=== PATIENT | female | born 1960 | race Caucasian/White ===

== ENCOUNTER 2019-03-10 07:58 | Inpatient (IN) | payer BC ==
[2019-03-10] VITALS (7 sets, daily range): BP systolic 110–135; BP diastolic 47–91
[~2019-03-10] VITALS: Ht 170.1 cm; Wt 77.1 kg
--- NOTE | ~2019-03-10 | O ---
[place], [place] OPERATIVE NOTE NAME: BHANU DAN [facility] #: [id number] UNIT #: [id number] ROOM: 402 DOCTOR: YUMI SERVIN DPM BIRTHDATE: [birth year] DOS: 03/10/2019 SURGEON: Yumi Servin DPM ASSISTANTS: 1. Terence Claudio, fellow. 2. Bony Rodriguez, PGY3. PREOPERATIVE DIAGNOSES: 1. Pilon fracture, left ankle. 2. Painful hardware superior calcaneus. 3. Painful hardware inferior calcaneus. POSTOPERATIVE DIAGNOSES: 1. Pilon fracture, left ankle. 2. Painful hardware superior calcaneus. 3. Painful hardware inferior calcaneus. PROCEDURES: 1. Open reduction and internal fixation of the medial malleolus, lateral malleolus, anterior portion of the tibia and reduction of the malaligned ankle. 2. Syndesmosis repair. 3. Removal of hardware superior calcaneus. 4. Removal of hardware inferior calcaneus. DESCRIPTION OF PROCEDURE: The patient was seen in the preop holding area, appropriate site marking was performed. She concurred with the preoperative evaluation. At this time, she was brought in the OR and placed well-padded on OR table where anesthesia was achieved. Once the anesthesia was achieved, her left foot and leg were prepped and draped in sterile fashion. Hemostasis was accomplished via mid-thigh tourniquet inflated to 300 mmHg. Attention directed to the left lower ankle where under fluoroscopy, a manipulation was performed as best as we could to see if we could mobilize the medial malleolar fragment, which we could. At this point in time, there is no crepitus, grinding in the ankle and surprised that once we had it realigned and we thought a salvage procedure would be best for her at this point in time. PROCEDURE #1: Open reduction and internal fixation, distal pilon fracture. Attention was directed to the medial aspect of the medial malleolus where approximately 6 cm incision was made, was deepened in the same plane using sharp and blunt dissection avoiding neurovascular structures. It was carried down to the deep tissues, avoiding neurovascular structures. At this time, the fracture was identified and the fracture fragment was taken down and debrided extensively to stimulate bleeding and removing all fibrous tissue around the fracture fragment. This is reduced and held in place with temporary K-wires. There was also comminution noted anteriorly distal portion of the distal tibia where a comminution of the fracture noted there. At this point in time, this was temporarily reduced and manipulated as best possible with this and this was held together by multiple K wires. At this point in time, multiple K wires holding the medial malleolus and the anterior distal tip and the joint in a stable [place], [place] OPERATIVE NOTE NAME: BHANU DAN UNIT #: [id number] ROOM: [facility] DOCTOR: YUMI SERVIN DPM BIRTHDATE: [birth year] position. We felt like we could stabilize and hold his ankle together with a good fixation and not have to perform a fusion on her at this point in time. With this in mind, we used a large medial tibial plate from [employer], combination of nonlocking and locking screws with a lag in antiglide technique of 3.5 screws proximal that were nonlocking and then locking the distal fragment once the antiglide technique was used to compress the plate to the bone. Once this was performed, this again was locked in place with a combination of locking and nonlocking screws. Next, two 4.0 screws were placed in the medial malleolus from inferior to distal to provide more stabilization of the ankle mortise and ensuring that the medial gutter was intact. At this point in time, next an anterior, posterior screw was placed in with a washer to try to suck down the anterior fragments to maintain position. It was checked under fluoroscopy and noted to be in good anatomic length and good fixation. Given this situation, her joint was free of any step-offs or any motionless fluid. It was free of any significant step-off. At this point in time, the area was flushed with copious amounts of normal saline. Deep tissue was closed with 0 Vicryl. Skin was closed with 2-0 nylon. Next, attention to the lateral aspect of the fibula where a small stab incision was made in distal fibula. At this time, a large long plate was placed percutaneously on subfascial dissection. At this point in time, the plate was placed up the distal fibula and checked under fluoroscopy. This was fixated with a combination of 2 proximal screws lag and 2 distal screws locked. PROCEDURE #2: Reduction of the syndesmosis. With the reduction forceps, a large Marquez clamp, the tib-fib was reduced tightly and two screws were placed in from lateral to medial to reduce the syndesmosis to provide stability to the ankle once this was performed. Deep tissue was closed with 0 Vicryl. Skin was closed with 2-0 nylon. Next, attention was directed to posterior superior aspect of the calcaneus. PROCEDURE #3: Removal of painful hardware superior calcaneus. A stab incision was made over the superior aspect of the calcaneus. At this time, the dissection carried down to the bone. At this time, dissection was carried down deep and at this point in time, the K-wire was removed. Surgical wound was flushed with copious amounts of sterile saline. The skin was closed using 2-0 nylon. Next, an incision was made in the inferior calcaneus where an incision was made and deepened in the same plane, using sharp and blunt dissection, avoiding neurovascular structures, was carried down to the bone. At this time, this bone was debrided, K wire was pulled out, removed and the area was flushed with copious amounts of sterile saline. Deep tissue was closed with 2-0 nylon. The surgical wounds were dressed with Betadine-soaked Adaptic, 4 x 4s, Sofiya in a sterile compressive fashion. No local anesthetic was used as the patient had a popliteal block prior to surgery. Her wounds were dressed with Betadine-soaked Adaptic, 4 x 4s, Sofiya in a sterile compressive fashion. A Univalve BK cast was applied. She tolerated the procedure and anesthesia well, left the OR with vital signs and vascular status intact. Tourniquet was dropped at 2 hours. Good cap refill time was noted to return to all digits of the left ankle. [place], [place] OPERATIVE NOTE NAME: BHANU DAN UNIT #: [id number] ROOM: 402 DOCTOR: YUMI SERVIN DPM BIRTHDATE: [birth year] YUMI SERVIN DPM CM:OPRECORD:OPERATIVE NOTE 20 Tonio SERVIN DPM 04/14/19 1246 interface
--- NOTE | ~2019-03-10 | WRIGHTHP ---
[place], [place] PATIENT HISTORY AND PHYSICAL EXAM NAME: BHANU DAN [facility] #: [id number] UNIT #: [id number] ROOM: 402 DOCTOR: YUMI SERVIN DPM BIRTHDATE: [birth year] DOS: 03/10/2019 INDICATION NOTE. The patient sustained a distal pilon type fracture of her left ankle. She also is a known diabetic with significant bone disease in terms of osteopenia. With this in mind, she has had this fracture, she is very unclear how long she has had due to her severe neuropathy. At this time, she is set up for surgery at [facility] on 03/10/2019, set up for possible ankle fusion, possible ORIF of the ankle, possible tibiotalar calcaneal fusion and also removal of hardware posterior aspect of the calcaneus where she had 2 K wires placed in for avulsion fracture previously. With this in mind, she is aware of pros, cons, risks and benefits, overcorrection, undercorrection, recurrence, numbness, infection, nonunion, delayed union, malunion, DVT, PE, limb loss, RSD, CRPS, , etc. With this in mind, she is set up for surgery. She agrees. She understands and consents. She agreed to site marking. She agreed to consent as well as the perioperative management. She understands that long-term followup is necessary due to her disease process. YUMI SERVIN DPM CM:HISPHYS:PATIENT HISTORY AND PHYSICAL EXAMINATION 20 28 YUMI SERVIN DPM 03/10/191928 interface
--- NOTE | ~2019-03-10 | WRIGHTHP ---
[place], [place] PATIENT HISTORY AND PHYSICAL EXAM NAME: BHANU DAN [facility] #: [id number] UNIT #: [id number] ROOM: 402 DOCTOR: YUMI SERVIN DPM BIRTHDATE: [birth year] DOS: 03/10/2019 LOWER EXTREMITY PHYSICAL EXAM: VASCULAR: She has palpable pedal pulses, 2/4 DP and PT. Good cap refill time. She has had noninvasive vascular studies done demonstrating good perfusion of the left lower extremity. She has mild diffuse edema in the left lower extremity. NEUROLOGIC: She has complete loss of protective sensation secondary to diabetic peripheral neuropathy. DERMATOLOGICAL: She has no open wounds. Skin integrity is intact. Skin wrinkles are present. Minimal edema to the left lower extremity. MUSCULOSKELETAL: She has grossly unstable hindfoot and ankle. She has a varus pull to her ankle due to gastroc equinus component as well as supination adduction type of injury of the medial malleolus with a distal fibular transverse fracture and comminution like a pilon fracture in the distal articular surface of the ankle distal tibia. ORTHOPEDIC EXAM: Pilon fracture, displaced medial malleolus fracture, nondisplaced fibular fracture, syndesmosis injury and varus component of her hindfoot and ankle. YUMI SERVIN DPM CM:HISPHYS:PATIENT HISTORY AND PHYSICAL EXAMINATION 172 35 YUMI SERVIN DPM 03/10/191935 interface
[~2019-03-10 07:58] MED LIST: ADMELOG100 UNIT/1 SQ; AMLODIPINE BES2.5 MG PO; CALCIUM + D SO1 EACH PO; GABAPENTIN100 M2 PO; LISINOPRIL5 MG PO; MULTI FOR HER1 EACH PO; Synthroid,Lev150 MCG PO; VITAMIN D5000 UNI1 PO
--- NOTE | 2019-03-10 15:45 | NUR ---
Time: 1544 A 60 year old female admitted to under services of DOYLE LEIVA DO. Pt. arrived via bed from [place]. Chief complaint: SHORTNESS OF BREATH X 3 DAYS. TORIN FERRER
[2019-03-10 18:11] LABS: HEMATOCRIT 37.2 % (37.0-47.0); HEMOGLOBIN 12.2 g/dl (12.0-16.0); MEAN CELL VOLUME 96.1 fl (81.0-99.0); MEAN CORPUSCULAR HGB 31.5 pg (27.0-31.0); MEAN CORPUSCULAR HGB CONC 32.8 g/dl (33.0-37.0); MEAN PLATELET VOLUME 9.6 fl (9.6-12.3); PLATELET COUNT AUTOMATED 294 10*3/uL (130-400); RED BLOOD COUNT 3.87 10*6/uL (4.10-5.10); RED CELL DISTRI WIDTH 12.1 % (0-14.5); WHITE BLOOD COUNT 14.1 10*3/uL (4.8-10.8)
[2019-03-10 18:29] LABS: ALBUMIN 3.3 gm/dl (3.1-4.5); ALKALINE PHOSPHATASE 144 U/L (45-117); BUN 13 mg/dl (7-24); CHLORIDE 107 mmol/L (98-107); CREATININE 0.62 mg/dL (0.55-1.02); PHOSPHOROUS 2.7 mg/dL (2.5-4.9); POTASSIUM 4.5 mmol/L (3.5-5.1); SGOT/AST 11 IU/L (3-35); SGPT/ALT 11 U/L (12-78); SODIUM 138 mmol/L (136-145)
[2019-03-10 18:39] LABS: BURR CELLS FEW; PLATELET SUFFICIENCY NORMAL (NORMAL); TOTAL CELLS COUNTED 100 #CELLS
--- NOTE | 2019-03-10 19:15 | NUR ---
RESTING IN BED WITH EYES CLOSED. HEP LOCKS INTACT TO RIGHT HAND & LEFT HAND; SITE ASYMPTOMATIC. PT. HAS INSULIN PUMP THAT SHE WANTED TO RIVET THROWER. THIS RN AND OTHER RN ASSISTED PT. BLOOD SUGAR 246. WILL CONTINUE TO MONITOR.
[2019-03-10 19:21] LABS: BILIRUBIN NEGATIVE (NEGATIVE); BLOOD 1+ (NEGATIVE); CLARITY CLOUDY (CLEAR); COLOR YELLOW (YELLOW); GLUCOSE 3+ (NEGATIVE); KETONE 3+ (NEGATIVE); LEUKO ESTERASE 2+ (NEGATIVE); NITRITE POSITIVE (NEGATIVE); PH 5.5 (5.0-9.0); UROBILINOGEN 0.2 E.U./dl (0.2-1.0)
[2019-03-10 19:28] LABS: WBC TNTC wbc/hpf (0-5)
--- NOTE | 2019-03-10 20:15 | NUR ---
BLOOD SUGAR 220.
--- NOTE | 2019-03-10 21:44 | NUR ---
MEDICATED WITH TYLENOL FOR C/O GENERALIZED DISCOMFORT.
--- NOTE | 2019-03-10 23:45 | NUR ---
MEDICATED WITH ZOFRAN FOR NAUSEA/PT. ALSO HAD A SMALL EMESIS.
[2019-03-11] VITALS: BP 127/47
--- NOTE | 2019-03-11 02:00 | NUR ---
RESTING IN BED WITH EYES CLOSED. NO FURTHER C/O NAUSEA. ZOFRAN APPARENTLY EFFECTIVE. CALL LIGHT WITHIN REACH.
[2019-03-11 05:50] LABS: BASO % 0.2 % (0.0-1.0); HEMATOCRIT 31.6 % (37.0-47.0); HEMOGLOBIN 10.6 g/dl (12.0-16.0); LYMPH # 1.5 10*3/uL (1.3-4.4); LYMPH % 13.7 % (27.0-41.0); MEAN CELL VOLUME 95.2 fl (81.0-99.0); MEAN CORPUSCULAR HGB 31.9 pg (27.0-31.0); MEAN CORPUSCULAR HGB CONC 33.5 g/dl (33.0-37.0); MEAN PLATELET VOLUME 9.6 fl (9.6-12.3); MONO # 0.8 10*3/uL (0.1-1.0); MONO % 7.2 % (3.0-9.0); NEUT # 8.8 10*3/uL (2.3-7.9); NEUT % 78.7 % (47.0-73.0); PLATELET COUNT AUTOMATED 246 10*3/uL (130-400); RED BLOOD COUNT 3.32 10*6/uL (4.10-5.10); RED CELL DISTRI WIDTH 11.9 % (0-14.5); WHITE BLOOD COUNT 11.1 10*3/uL (4.8-10.8)
[2019-03-11 06:03] LABS: ACT PARTIAL THROMBO TIME 26.8 SECONDS (20.0-32.1)
[2019-03-11 06:08] LABS: ALBUMIN 2.9 gm/dl (3.1-4.5); ALKALINE PHOSPHATASE 120 U/L (45-117); BUN 13 mg/dl (7-24); CHLORIDE 110 mmol/L (98-107); CHOLESTEROL 107 mg/dL (<200); FREE T4 1.47 ng/dl (0.76-1.46); HDL CHOLESTEROL 54 mg/dl (40-60); LDL CHOLESTEROL 43 mg/dL (9-159); PHOSPHOROUS 3.4 mg/dL (2.5-4.9); POTASSIUM 3.9 mmol/L (3.5-5.1); SGOT/AST 10 IU/L (3-35); SGPT/ALT 12 U/L (12-78); SODIUM 143 mmol/L (136-145); TOTAL PROTEIN 6.1 gm/dL (6.4-8.2); TRIGLYCERIDES 50 mg/dl (<150); VLDL CHOLESTEROL 10 mg/dL (6-40)
[2019-03-11 06:13] LABS: THYROID STIM HORMONE (HS) 0.106 uIU/ml (0.358-4.75)
--- NOTE | 2019-03-11 06:15 | NUR ---
MEDICATED WITH ZOFRAN PER PT'S REQUEST.
--- NOTE | 2019-03-11 06:29 | NUR ---
BLOOD SUGAR 128.
[2019-03-11 08:00] VITALS: BP 122/48
--- NOTE | 2019-03-11 08:35 | NUR ---
TYLENOL GIVEN FOR C/O LT FOOT PAIN. WILL MONITOR.
[2019-03-11 09:27] LABS: VITAMIN D, 25-HYDROXY 44.8 ng/mL (30-100)
--- NOTE | 2019-03-11 09:40 | NUR ---
PHYSICAL THERAPY Patient evaluated on 4, full evaluation to follow. D/C PT after evaluation, patient is 100 % (I) with NWB LLE mobility ( has been NWB LLE since 2017). PAtient is low complexity via chart review, tests and evaluation: 27584. Thank you for this referral. Ashley Tomlin,PT
--- NOTE | 2019-03-11 10:09 | NUR ---
Occupational Therapy evaluation completed on with full eval to follow. Patient reports that she has been NWB since 2017 and has w/c, ww,BSC, crutches, kneeler scooters at home to use. Precautions include WBAT,LLE cast,fall risk, IV UE, moderate complexity level 12048 via chart review, testing and evaluation. REcommend no further OT at this time. Patient in agreement. Thank you. Elke Bajwa OTR/l
--- NOTE | 2019-03-11 11:05 | NUR ---
[employer] Supervisor in to talk to patient. Patient states lives at HOME with . There are FEW steps in the home. Physician: NON STAFF Pharmacy: [facility] #[id number] Home health services: NONE Patient's level of ADLs: INDEPENDENT Patient has working utilities: YES DME: WHEEL CHAIR, KNEE SCOOTER, POTTY CHAIR Follow-up physician's appointment after d/c: PREFERS TO MAKE OWN AFTER DISCHARGE Does patient want to access PORTAL?: NO Discharge plan PT LIVES AT HOME WITH HER . STATES SHE HAS RENTED A WHEELCHAIR BECAUSE THEY TOLD HER SHE WOULD BE NON WEIGHT BEARING FOR 2 WEEKS, SHE HAS A KNEE SCOOTER AND A POTTY CHAIR. STATES HER NEICE IS FLYING IN TO HELP HER AT HOME. DENIES ANY OTHER NEEDS AT THIS TIME. WILL CONTINUE TO FOLLOW. STATES SHE WILL HAVE A RIDE HOME ON DISCHARGE.. SAI JOHNSON
--- NOTE | 2019-03-11 12:52 | NUR ---
[facility] Discharge instructions reviewed with patient/family. Patient receptive and verbalizes understanding. Follow-up care arranged. Written instructions given to patient/family. KYARA LANDON
[2019-04-07] MEDS ORDERED: DOXYCYCLINE100 M3 PO (11:37)
[2019-04-07] MEDS ORDERED: ULTRAM50 MG PO (11:37)
== END 2019-03-11 12:52 | disposition home or self-care (01) | DRG 493 ==
LOC: SDC 07:58 → 4E 13:57
PROVIDERS: Internal Medicine; ADMIT Internal Medicine
PROC: 0QSH04Z Reposition Left Tibia with Internal Fixation Device, Open Approach (ICD-10-PCS; principal; 2019-03-10)
PROC: 0SSG04Z Reposition Left Ankle Joint with Internal Fixation Device, Open Approach (ICD-10-PCS; principal; 2019-03-10)
PROC: 0QSK04Z Reposition Left Fibula with Internal Fixation Device, Open Approach (ICD-10-PCS; principal; 2019-03-10)
PROC: 0SPG04Z Removal of Internal Fixation Device from Left Ankle Joint, Open Approach (ICD-10-PCS; principal; 2019-03-10)
DX: S82.872A Displaced pilon fracture of left tibia, initial encounter for closed fracture (principal); N39.0 Urinary tract infection, site not specified; X58.XXXA Exposure to other specified factors, initial encounter; E83.51 Hypocalcemia; S93.492A Sprain of other ligament of left ankle, initial encounter; I10 Essential (primary) hypertension; E03.9 Hypothyroidism, unspecified; E10.40 Type 1 diabetes mellitus with diabetic neuropathy, unspecified; E66.3 Overweight; E10.65 Type 1 diabetes mellitus with hyperglycemia; D72.823 Leukemoid reaction; Z80.1 Family history of malignant neoplasm of trachea, bronchus and lung; Z88.5 Allergy status to narcotic agent; Z79.899 Other long term (current) drug therapy; Y93.89 Activity, other specified; Y92.89 Other specified places as the place of occurrence of the external cause; Y99.8 Other external cause status

== ENCOUNTER → 2019-04-07 | Day surgery (SDC) | payer BC ==
[~2019-04-07] VITALS: Ht 171.4 cm; Wt 74.8 kg
[~2019-04-07] MED LIST changes: +DOXYCYCLINE100 M3 PO; +ULTRAM50 MG PO
--- NOTE | ~2019-04-07 | WRIGHTHP ---
[place], [place] PATIENT HISTORY AND PHYSICAL EXAM NAME: BHANU DAN [facility] #: [id number] UNIT #: [id number] ROOM: DOCTOR: YUMI SERVIN DPM BIRTHDATE: [birth year] DOS: 04/07/2019 HISTORY OF PRESENT ILLNESS: The patient is seen for falls for staged reconstructive surgery. She is diabetic and she had an avulsion fracture of her calcaneus. She had some K-wires inserted by another physician in outside location on her left foot and she had separate incision and drainage, bone debridement and bone biopsy of the left foot to rule out osteomyelitis. With this in mind, she is aware of pros and cons, risks and benefits including overcorrection, undercorrection, recurrence, infection, worsening limb loss, , etc., were explained to the patient for surgery at [facility]. YUMI SERVIN DPM CM:HISPHYS:PATIENT HISTORY AND PHYSICAL EXAMINATION 57 48 YUMI SERVIN DPM 04/07/192247 interface
--- NOTE | ~2019-04-07 | O ---
[place], [place] OPERATIVE NOTE NAME: BHANU DAN UNIT #: [id number] ROOM: DOCTOR: YUMI SERVIN DPM BIRTHDATE: [birth year] DOS: 04/07/2019 SURGEON: Dr. Servin. ASSISTANTS: 1. Dr. Terence Claudio, fellow. 2. Alcides iGpson, PGY3. PREOPERATIVE DIAGNOSES: 1. Osteomyelitis. 2. Exostosis of the right calcaneus. POSTOPERATIVE DIAGNOSES: 1. Osteomyelitis. 2. Exostosis of the right calcaneus. PROCEDURES: Incision and drainage, bone debridement, bone biopsy of the left foot. PROCEDURE IN DETAIL: The patient was seen preoperatively. Appropriate site marking performed. She agreed, she understood the preoperative maangement in the preoperative area. She was brought to the OR and placed on well-padded OR table. Anesthesia was achieved. Once the anesthesia was achieved, appropriate time-out was performed, everyone in room concurred. Her left foot and leg were prepped and draped in sterile fashion. At this time, under fluoroscopy guidance, a 4-cm incision was made on medial posterior aspect of the calcaneus. It was deepened in same plane using sharp and blunt dissection avoiding neurovascular structure, carried down to the deep tissues. At this point in time, the bone was identified using a rongeur with 10 blade. The bone was excised and removed in total. The bone was sent off for Gram stain, aerobic, anaerobic, fungal acid fast as well as biopsy of the bone. There was no gross identification of infection. The area was irrigated with copious amounts of sterile saline and deep tissue was closed using 0 Vicryl and skin was closed with 2-0 nylon. Surgical wounds were dressed with Betadine-soaked Adaptic, 4 x 4s, Sofiya a circumferential fashion. She tolerated the procedure and anesthesia well and left the OR with vital signs stable and vascular status intact. A Univalve BK cast was applied to her left lower extremity. [place], [place] OPERATIVE NOTE NAME: BHANU DAN UNIT #: [id number] ROOM: DOCTOR: YUMI SERVIN DPM BIRTHDATE: [birth year] YUMI SERVIN DPM CM:OPRECORD:OPERATIVE NOTE [id number] YUMI SERVIN DPM 04/14/19 1255 interface
--- NOTE | ~2019-04-07 | WRIGHTHP ---
[place], [place] PATIENT HISTORY AND PHYSICAL EXAM [facility] [id number] UNIT #: [id number] ROOM: DOCTOR: YUMI SERVIN DPM BIRTHDATE: [birth year] DOS: 04/07/2019 LOWER EXTREMITY PHYSICAL EXAMINATION: VASCULAR: Palpable pedal pulses, 2/4 DP and PT. Good cap refill time on the left. She has some localized edema from previous surgery. NEUROLOGICAL: She has loss of protective sensation of her left lower extremity. DERMATOLOGIC: All skin lines are well coapted. Her sutures intact, healing well. No cardinal signs of infection and no evidence of dehiscence of her left foot. MUSCULOSKELETAL: She has painful area in the posterior aspect of the left heel where a large prominent bone is located. ORTHOPEDIC: Possible osteomyelitis. A large bony exostosis of the left foot. YUMI SERVIN DPM CM:HISPHYS:PATIENT HISTORY AND PHYSICAL EXAMINATION 57 225 YUMI SERVIN DPM 04/07/19 2310 interface
[2019-04-07 09:06] VITALS: BP 131/47
[2019-04-07 10:50] VITALS: BP 136/68
[2019-04-07 11:05] VITALS: BP 150/74
[2019-04-07 11:20] VITALS: BP 168/71
[2019-04-08 14:06] LABS: ACID FAST SPEC PROCESSING Tissue Grinding (.)
== END | disposition home or self-care (01) ==
LOC: SDC 04-05 08:00
PROVIDERS: Podiatrist
DX: M86.472 Chronic osteomyelitis with draining sinus, left ankle and foot (principal); M89.9 Disorder of bone, unspecified; E11.40 Type 2 diabetes mellitus with diabetic neuropathy, unspecified; I10 Essential (primary) hypertension; H40.9 Unspecified glaucoma; E03.9 Hypothyroidism, unspecified; Z88.5 Allergy status to narcotic agent; Z91.048 Other nonmedicinal substance allergy status; Z98.890 Other specified postprocedural states; Z79.4 Long term (current) use of insulin; Z79.899 Other long term (current) drug therapy; Z82.49 Family history of ischemic heart disease and other diseases of the circulatory system; Z83.3 Family history of diabetes mellitus

== ENCOUNTER → 2019-10-06 | Day surgery (SDC) | payer BC ==
[~2019-10-06] VITALS: Ht 170.1 cm; Wt 74.8 kg
[~2019-10-06] MED LIST changes: +PREMPRO 0.625-1 EACH PO; +TRAMADOL HCL50 MG PO; +VITAMIN D5000 UNIT PO; +XARELTO10 MG PO
[2019-10-06 06:40] VITALS: BP 144/78
[2019-10-06 08:30] VITALS: BP 133/81
[2019-10-06 08:45] VITALS: BP 132/56
[2019-10-06 09:00] VITALS: BP 136/62
[2019-10-06 09:15] VITALS: BP 138/60
[2019-10-06 09:24] VITALS: BP 142/61
== END | disposition home or self-care (01) ==
LOC: SDC 09-30 14:00
DX: M21.861 Other specified acquired deformities of right lower leg (principal); E03.9 Hypothyroidism, unspecified; E11.9 Type 2 diabetes mellitus without complications; I10 Essential (primary) hypertension; K21.9 Gastro-esophageal reflux disease without esophagitis; E55.9 Vitamin D deficiency, unspecified; G60.9 Hereditary and idiopathic neuropathy, unspecified; H40.9 Unspecified glaucoma; Z79.899 Other long term (current) drug therapy; Z98.890 Other specified postprocedural states; Z88.8 Allergy status to other drugs, medicaments and biological substances; Z83.3 Family history of diabetes mellitus; Z82.49 Family history of ischemic heart disease and other diseases of the circulatory system; Z82.3 Family history of stroke

== ENCOUNTER → 2019-12-15 | Outpatient (CLI) | payer BC | END | disposition home or self-care (01) | LOC: US 15:41 | DX: M79.606 Pain in leg, unspecified (principal); M79.605 Pain in left leg; M79.89 Other specified soft tissue disorders ==

== ENCOUNTER 2020-03-01 03:25 | Inpatient (IN) | payer BC ==
[~2020-03-01] VITALS: Ht 170.1 cm; Wt 74.8 kg
[2020-03-01] VITALS (8 sets, daily range): BP systolic 128–137; BP diastolic 43–71
[2020-03-01 18:56] LABS: BASO % 0.2 % (0.0-1.0); EOS % 0.2 % (1.0-4.0); HEMATOCRIT 38.2 % (37.0-47.0); LYMPH # 0.9 10*3/uL (1.3-4.4); LYMPH % 7.1 % (27.0-41.0); MEAN CELL VOLUME 94.1 fl (81.0-99.0); MEAN CORPUSCULAR HGB 32.8 pg (27.0-31.0); MEAN CORPUSCULAR HGB CONC 34.8 g/dl (33.0-37.0); MEAN PLATELET VOLUME 9.2 fl (9.6-12.3); MONO # 0.4 10*3/uL (0.1-1.0); MONO % 3.5 % (3.0-9.0); NEUT # 11.1 10*3/uL (2.3-7.9); NEUT % 88.8 % (47.0-73.0); PLATELET COUNT AUTOMATED 248 10*3/uL (130-400); RED BLOOD COUNT 4.06 10*6/uL (4.10-5.10); RED CELL DISTRI WIDTH 12.4 % (0-14.5); WHITE BLOOD COUNT 12.5 10*3/uL (4.8-10.8)
[2020-03-02] VITALS: BP 135/55
[2020-03-02 06:21] LABS: BASO % 0.2 % (0.0-1.0); EOS % 0.1 % (1.0-4.0); HEMATOCRIT 35.6 % (37.0-47.0); LYMPH % 8.6 % (27.0-41.0); MEAN CELL VOLUME 93.2 fl (81.0-99.0); MEAN CORPUSCULAR HGB 31.7 pg (27.0-31.0); MEAN PLATELET VOLUME 9.6 fl (9.6-12.3); MONO # 0.9 10*3/uL (0.1-1.0); MONO % 7.5 % (3.0-9.0); NEUT # 9.9 10*3/uL (2.3-7.9); NEUT % 83.3 % (47.0-73.0); PLATELET COUNT AUTOMATED 248 10*3/uL (130-400); RED BLOOD COUNT 3.82 10*6/uL (4.10-5.10); RED CELL DISTRI WIDTH 12.3 % (0-14.5); WHITE BLOOD COUNT 11.9 10*3/uL (4.8-10.8)
[2020-03-02 06:45] LABS: BUN 9 mg/dl (7-24); CHLORIDE 110 mmol/L (98-107); CREATININE 0.54 mg/dL (0.55-1.02); POTASSIUM 3.5 mmol/L (3.5-5.1); SODIUM 140 mmol/L (136-145)
[2020-03-02 08:00] VITALS: BP 114/50
[2020-03-02] MEDS ORDERED: ZOFRAN4 MG PO ×2 (11:34→19:56)
[2020-03-02 12:00] VITALS: BP 95/73
[2020-03-02] MEDS ORDERED: AMINOPHYLLIN200 MG PO (15:32)
[2020-03-02 16:00] VITALS: BP 131/58
[2020-03-03 11:08] LABS: ACID FAST SPEC PROCESSING Tissue Grinding (.)
== END 2020-03-02 20:04 | disposition home or self-care (01) | DRG 494 ==
LOC: SDC 03:25 → 5E 14:31
PROVIDERS: Internal Medicine; Podiatrist; Podiatrist Foot & Ankle Surgery; ADMIT Family Medicine
PROC: 0SGG0KZ Fusion of Left Ankle Joint with Nonautologous Tissue Substitute, Open Approach (ICD-10-PCS; principal; 2020-03-01)
PROC: 0L8T0ZZ Division of Left Ankle Tendon, Open Approach (ICD-10-PCS; principal; 2020-03-01)
DX: M19.072 Primary osteoarthritis, left ankle and foot (principal); E10.610 Type 1 diabetes mellitus with diabetic neuropathic arthropathy; M21.6X2 Other acquired deformities of left foot; E03.9 Hypothyroidism, unspecified; I10 Essential (primary) hypertension; Z80.1 Family history of malignant neoplasm of trachea, bronchus and lung; Z98.890 Other specified postprocedural states; Z88.5 Allergy status to narcotic agent; Z91.048 Other nonmedicinal substance allergy status; Z79.4 Long term (current) use of insulin; Z79.899 Other long term (current) drug therapy